=== PATIENT | female | born 1995 | race Caucasian/White ===

== ENCOUNTER 2019-01-17 13:44 | Emergency (ER) | payer MEDICAID, OTHER ==
[2019-01-17] MEDS: KETOROLAC 30 MG INJ IV (13:57)
[2019-01-17 14:22] LABS: ADD MAN DIFF? NO
[2019-01-17] MEDS: SOD CHLORIDE 0.9% 1,000 ML IV (14:23)
[2019-01-17 14:25] LABS: WHITE BLOOD COUNT 15.7 10^3/ul (4.8-10.8)
[2019-01-17 14:25] LABS: BASOPHIL # 0.1 10^3/ul (0.0-0.1); BASOPHILS % 0.3 % (0.0-2.0); EOSINOPHILS % 0.1 % (0.0-7.0); HEMATOCRIT 41.6 % (37.0-47.0); HEMOGLOBIN 14.2 g/dl (12.0-16.0); LYMPHOCYTES # 1.1 10^3/ul (0.8-2.9); LYMPHOCYTES % 6.7 % (15.0-51.0); MEAN CORPUSCULAR HEMOGLOBIN 30.5 pg (29.0-33.0); MEAN CORPUSCULAR HGB CONC 34.1 g/dl (32.0-37.0); MEAN CORPUSCULAR VOLUME 89.3 fl (82.0-101.0); MEAN PLATELET VOLUME 10.3 fl (7.4-10.4); MONOCYTE # 0.7 10^3/ul (0.3-0.9); MONOCYTES % 4.7 % (0.0-11.0); NEUTROPHIL # 13.7 10^3/ul (1.6-7.5); NEUTROPHILS % 87.6 % (39.0-77.0); PLATELET COUNT 280 10^3/UL (140-415); RED BLOOD COUNT 4.66 10^6/ul (4.20-5.40); RED CELL DISTRIBUTION WIDTH 11.3 % (11.5-14.5)
[2019-01-17] MEDS: LORAZEPAM 2 MG INJ IV (14:28)
[2019-01-17 14:42] LABS: ALANINE AMINOTRANSFERASE 12 IU/L (13-69); ALBUMIN 4.9 g/dl (3.3-4.9); ALBUMIN/GLOBULIN RATIO 1.44; ALKALINE PHOSPHATASE 75 IU/L (42-121); AMYLASE 84 U/L (11-123); ANION GAP 13 (5-13); ASPARTATE AMINO TRANSFERASE 20 IU/L (15-46); BILIRUBIN,INDIRECT 0.8 mg/dl (0-1.1); BILIRUBIN,TOTAL 0.8 mg/dl (0.2-1.3); BLOOD UREA NITROGEN 12 mg/dl (7-20); CALCIUM 9.8 mg/dl (8.4-10.2); CARBON DIOXIDE 21 mmol/L (21-31); CHLORIDE 107 mmol/L (97-110); CREATININE 0.74 mg/dl (0.44-1.00); Estimated GFR > 60 mL/min (>60); GLUCOSE 114 mg/dl (70-220); LIPASE 39 U/L (23-300); POTASSIUM 3.8 mmol/L (3.5-5.1); SODIUM 141 mmol/L (135-144); TOTAL PROTEIN 8.3 g/dl (6.1-8.1)
[2019-01-17 14:45] LABS: INR 1.07; PT RATIO 1.1
[2019-01-17 14:46] LABS: PARTIAL THROMBOPLASTIN TIME 26.8 Sec (23.0-35.0)
== END 2019-01-17 17:09 | disposition home or self-care (01) ==
LOC: E/R 13:44
DX: N94.6 Dysmenorrhea, unspecified (principal); R20.2 Paresthesia of skin
CPT/HCPCS: 70450; 80053; 82150; 83690; 84703; 85025; 85610; 85730; 93005; 96374; 99285-25